=== PATIENT | male | born 1975 | race Caucasian/White ===

== ENCOUNTER 2020-08-24 13:13 | Emergency (ER) | payer OTHER, SELFPAY ==
[2020-08-24] VITALS (28 sets, daily range): BP systolic 121–169; BP diastolic 80–102; PULSE 69–84; RESP 16–22; TEMP 36.8; O2SAT 97–99
--- NOTE | ~2020-08-24 | XR_ITS ---
EXAMINATION: XR chest 2V DATE: 08/24/2020 13:58 INDICATION: Chest pain and hypertension TECHNIQUE: PA and lateral views of the chest are obtained. COMPARISON: 04/14/2020 FINDINGS: There is stable cardiomegaly. The lungs are free of acute opacities. There is no pleural ef fusion or pneumothorax. A dual-lead cardiac pacemaker of the left chest wall ends with leads in expec renato locations. Small sternotomy wires are consistent with pediatric cardiac surgery. IMPRESSION: 1. Cardiomegaly. Reviewed, dictated and finalized at location A. ENTATIVE MAINTENANCE TECHNICIAN IMPRESSION: 1. Cardiomegaly.
[2020-08-24 13:50] LABS: Basophils Percent Auto 0.4 % (0.2-1.2); Eosinophils Absolute Auto 0.1 K/mm3 (0-0.3); Eosinophils Percent Auto 1.2 % (0-4.4); Hematocrit 45.6 % (42.0-52.0); Hemoglobin 15.6 g/dL (14.0-18.0); Immature Granulocyte Absolute 0.01 K/mm3 (0.00-0.031); Immature Granulocyte Percent A 0.1 % (0-0.5); Lymphocytes Absolute Auto 1.76 K/mm3 (0.9-3.2); Lymphocytes Percent Auto 24.3 % (18.3-44.2); Mean Corpuscular HGB Conc 34.2 g/dl (32-36); Mean Corpuscular Hemoglobin 29.8 pg (26-34); Mean Corpuscular Volume 87.2 fl (80-100); Monocytes Absolute Auto 0.7 K/mm3 (0.1-0.6); Monocytes Percent Auto 9.3 % (2.6-8.5); Neutrophils Absolute Auto 4.7 K/mm3 (1.3-6.7); Neutrophils Percent Auto 64.7 % (45.5-73.1); Platelet Count Result 293 k/mm3 (150-375); Red Blood Count 5.23 M/mm3 (4.6-6.20); White Blood Count 7.2 K/mm3 (4.5-10.0)
--- NOTE | 2020-08-24 13:57 | ED.GENADULT ---
HPI - General Adult General Chief complaint: Recheck/Abnormal Lab/Rx Stated complaint: BP Issues Time Seen by Provider: 08/24/20 13:17 History of Present Illness HPI narrative: Patient is a 44-year-old male who presents ER with concerns of left arm tightness moving into his neck. Symptoms began around 11 AM. He had been working his job when it occurred. Lasted for 15 minutes. Took his blood pressure and realized it was 160s over 100s was she feels is slightly elevated for him. He reports compliance with his medications. No history of coronary disease was had a VSD repair as a child and then had a pacemaker placed for heart block. Patient reports he had a stress test in November of this year that was normal. Patient denies any chest pain at this time. He is a patient of Dr. De Jesus's with [facility] Related Data Allergies Allergy/AdvReac Type Severity Reaction Status Date / Time No Known Allergies Allergy Verified 08/24/20 13:22 Review of Systems Review of Systems: All systems reviewed & are unremarkable except as noted in HPI and below Constitutional: Constitutional: Denies chills, Denies fever(s) and Denies weakness ENT: Denies nasal congestion and Denies sore throat Cardiovascular: Cardiovascular: Denies chest pain, Denies rapid heart rate and Reports radiating jaw, neck or arm pain Respiratory: Respiratory: Denies cough, Denies dyspnea and Denies wheezing Gastrointestinal: Gastrointestinal: Denies abdominal pain, Denies nausea and Denies vomiting PMFSH Past Medical History Medical History (Updated 08/24/20 @ 17:40 by Filemon Vasquez MD) Heart block Hypertension Surgical History Surgical History (Updated 08/24/20 @ 13:59 by Filemon Vasquez MD) H/O ventricular septal defect repair History of permanent cardiac pacemaker placement Social History Social History (Updated 08/24/20 @ 14:00 by Filemon Vasquez MD) Smoking status: Never smoker Exam Narrative: Exam Narrative: GENERAL: Well-appearing, well-nourished, and in no acute distress. HEAD: Normocephalic, atraumatic CHEST: Clear to auscultation. No respiratory distress. HEART: Regular rate and rhythm. Normal peripheral pulses. ABDOMEN: Soft, nontender, nondistended. EXTREMITIES: Normal range of motion. No edema. SKIN: Warm, dry, no rash. NEURO: Alert and oriented x3. PSYCH: Normal mood and affect. Course Course Emergency Course: Patient informed of results. Resting comfortably. Troponin negative x2. Negative stress test earlier in the year. Recommend follow-up with his imaging system administrator. Vital Signs Vital signs: Vital Signs Temperature 98.2 F 08/24/20 13:17 Pulse Rate 80 08/24/20 13:17 Respiratory Rate 16 08/24/20 13:17 Blood Pressure 169/102 H 08/24/20 13:17 Pulse Oximetry 98 08/24/20 13:17 Temperature 98.2 F 08/24/20 13:17 Pulse Rate 73 08/24/20 16:41 Respiratory Rate 20 08/24/20 16:41 Blood Pressure 147/91 H 08/24/20 16:41 Pulse Oximetry 99 08/24/20 16:41 Medical Decision Making Vital Signs Vital Signs: Vital Signs Temperature 98.2 F 08/24/20 13:17 Pulse Rate 80 08/24/20 13:17 Respiratory Rate 16 08/24/20 13:17 Blood Pressure 169/102 H 08/24/20 13:17 Pulse Oximetry 98 08/24/20 13:17 Temperature 98.2 F 08/24/20 13:17 Pulse Rate 73 08/24/20 16:41 Respiratory Rate 20 08/24/20 16:41 Blood Pressure 147/91 H 08/24/20 16:41 Pulse Oximetry 99 08/24/20 16:41 Lab Data Result diagrams: 08/24/20 13:43 08/24/20 13:43 Labs: Lab Results 08/24/20 08/24/20 08/24/20 Range/Units 13:43 13:43 13:43 WBC 7.2 (4.5-10.0) K/mm3 RBC 5.23 (4.6-6.20) M/mm3 Hgb 15.6 (14.0-18.0) g/dL Hct 45.6 (42.0-52.0) % MCV 87.2 (80-100) fl MCH 29.8 (26-34) pg MCHC 34.2 (32-36) g/dl RDW 13.0 (11.5-14.5) % Plt Count 293 (150-375) k/mm3 MPV 10.0 (7.4-10.4) fl Immature Gran % (Auto) 0.1 (0
[2020-08-24 14:02] LABS: Partial Thromboplastin Time 28.9 SECONDS (22.3-36.8)
[2020-08-24 14:05] LABS: Anion Gap 7 mmol/L (8-16); Blood Urea Nitrogen 20 mg/dL (9-20); Calcium 9.7 mg/dL (8.4-10.2); Carbon Dioxide 32 mmol/L (22-30); Chloride 101 mmol/L (98-107); Estimated CRCL calculation 94 ml/min; Estimated Glomerular Filt Rate > 60; Glucose 134 mg/dL (75-110); Potassium 4.1 mmol/L (3.4-5.0); Sodium 140 mmol/L (137-145)
--- NOTE | 2020-08-24 14:11 | ECG_ITS ---
Measurements Intervals [place] Rate: 75 P: 18 HI: 277 QRS: -53 QRSD: 181 T: 122 QT: 448 QTc: 501 Interpretive Statements ATRIAL SENSE- ELECTRONIC VENTRICULAR PACEMAKER BASELINE ARTIFACT- V2-V3 NO FURTHER INTERPRETATION IS POSSIBLE ATYPICAL ECG Electronically Signed On 08-24-2020 14:43:52 ORTHOTIC TECHNICIAN by Sumeet Bowen D.O.
[2020-08-24 14:15] LABS: Troponin I < 0.012 ng/mL (0.000-0.034)
[2020-08-24 16:57] LABS: Troponin I < 0.012 ng/mL (0.000-0.034)
== END 2020-08-24 17:51 | disposition home or self-care (01) ==
PROVIDERS: Emergency Provider Emergency Medicine
DX: R07.89 Other chest pain (principal); I10 Essential (primary) hypertension; Z95.0 Presence of cardiac pacemaker
CPT/HCPCS: 36415; 71046; 80048; 84484; 85025; 85610; 85730; 93005; 99284